=== PATIENT | male | born 1950 | race Caucasian/White ===

== ENCOUNTER 2019-03-18 09:43 | Emergency (ER) | payer MEDICARE, MEDICAID, SELFPAY | END 2019-03-18 11:44 | disposition home or self-care (01) | PROVIDERS: Emergency Provider Nurse Practitioner Family; Family Provider Family Medicine; Visit Provider Nurse Practitioner Family | DX: M54.12 Radiculopathy, cervical region (principal); Z88.2 Allergy status to sulfonamides; F17.210 Nicotine dependence, cigarettes, uncomplicated; I10 Essential (primary) hypertension; J44.9 Chronic obstructive pulmonary disease, unspecified | CPT/HCPCS: 72125; 96372; 99284; J1100; J1885 ==

== ENCOUNTER → 2019-07-26 08:13 | Outpatient (BNVA) | payer MEDICARE, MEDICAID, SELFPAY | PROVIDERS: Family Provider Family Medicine; PCP Family Medicine; Visit Provider Nurse Practitioner | DX: F33.0 Major depressive disorder, recurrent, mild (principal); F43.12 Post-traumatic stress disorder, chronic | CPT/HCPCS: 99213 ==

== ENCOUNTER → 2019-08-29 15:21 | Outpatient (BNVA) | payer MEDICARE, MEDICAID, SELFPAY | PROVIDERS: Family Provider Family Medicine; PCP Family Medicine; Visit Provider Nurse Practitioner Family | DX: M25.511 Pain in right shoulder (principal) | CPT/HCPCS: 73030 ==

== ENCOUNTER → 2020-01-18 07:38 | Outpatient (BNVA) | payer MEDICARE, MEDICAID, SELFPAY | PROVIDERS: Family Provider Family Medicine; PCP Family Medicine; Visit Provider Nurse Practitioner | DX: F33.0 Major depressive disorder, recurrent, mild (principal) | CPT/HCPCS: 99213 ==

== ENCOUNTER → 2020-02-26 14:03 | Outpatient (BNVA) | payer MEDICARE, MEDICAID, SELFPAY | PROVIDERS: Family Provider Family Medicine; PCP Family Medicine; Visit Provider Family Medicine | DX: W57.XXXA Bitten or stung by nonvenomous insect and other nonvenomous arthropods, initial encounter (principal); J44.1 Chronic obstructive pulmonary disease with (acute) exacerbation; I10 Essential (primary) hypertension; F33.0 Major depressive disorder, recurrent, mild; J44.9 Chronic obstructive pulmonary disease, unspecified; M19.011 Primary osteoarthritis, right shoulder; M19.012 Primary osteoarthritis, left shoulder | CPT/HCPCS: 80048; 85025 ==

== ENCOUNTER → 2020-06-17 12:00 | Outpatient (BNVA) | payer MEDICARE, MEDICAID, SELFPAY | PROVIDERS: Family Provider Family Medicine; PCP Family Medicine; Visit Provider Nurse Practitioner | DX: F33.0 Major depressive disorder, recurrent, mild (principal) | CPT/HCPCS: 99214 ==

== ENCOUNTER → 2020-10-15 07:11 | Outpatient (BNVA) | payer MEDICARE, MEDICAID, SELFPAY | PROVIDERS: Family Provider Family Medicine; PCP Family Medicine; Visit Provider Nurse Practitioner | DX: F33.0 Major depressive disorder, recurrent, mild (principal) | CPT/HCPCS: 99214 ==

== ENCOUNTER → 2021-01-20 08:23 | Outpatient (BNVA) | payer MEDICARE, MEDICAID, SELFPAY | PROVIDERS: Family Provider Family Medicine; PCP Family Medicine; Visit Provider Nurse Practitioner | DX: F33.0 Major depressive disorder, recurrent, mild (principal) | CPT/HCPCS: 99214 ==

== ENCOUNTER → 2021-04-22 07:02 | Outpatient (BNVA) | payer MEDICARE, MEDICAID, SELFPAY | PROVIDERS: Family Provider Family Medicine; PCP Family Medicine; Visit Provider Nurse Practitioner | DX: F33.0 Major depressive disorder, recurrent, mild (principal) | CPT/HCPCS: 99214 ==

== ENCOUNTER → 2021-07-14 07:39 | Outpatient (BNVA) | payer MEDICARE, MEDICAID, SELFPAY | PROVIDERS: Family Provider Family Medicine; PCP Family Medicine; Visit Provider Nurse Practitioner | DX: F33.0 Major depressive disorder, recurrent, mild (principal) | CPT/HCPCS: 99214 ==

== ENCOUNTER → 2021-11-04 09:54 | Outpatient (BNVA) | payer MEDICARE, MEDICAID, SELFPAY | PROVIDERS: Family Provider Family Medicine; PCP Family Medicine; Visit Provider Family Medicine | DX: I10 Essential (primary) hypertension (principal); M19.011 Primary osteoarthritis, right shoulder; M19.012 Primary osteoarthritis, left shoulder; Z00.00 Encounter for general adult medical examination without abnormal findings; F33.0 Major depressive disorder, recurrent, mild; J41.0 Simple chronic bronchitis | CPT/HCPCS: 80053; 85025 ==

== ENCOUNTER 2022-08-17 11:30 | Outpatient (CLI) | payer MEDICARE, MEDICAID, SELFPAY ==
--- NOTE | 2022-08-17 11:40 | XR_ITS ---
WS: [id number] Exam: XR knee RT 3V* [id number] Date/Time of Exam: 08/17/2022 12:09 PM Reason For Exam: continued diffuse knee pain No acute fracture or dislocation. There is chondrocalcinosis of the menisci. No joint effusion is see n. Posterior vascular calcifications. Mild degenerative change of the medial joint compartment. XR/XR knee RT 3V* [id number] IMPRESSION: 1. Mild DJD and chondrocalcinosis. 2. No fracture or joint effusion.
== END 2022-08-17 11:31 | disposition home or self-care (01) ==
LOC: RAD 11:35
PROVIDERS: PCP Family Medicine; Visit Provider Family Medicine
DX: M17.11 Unilateral primary osteoarthritis, right knee (principal); M11.261 Other chondrocalcinosis, right knee; S83.421A Sprain of lateral collateral ligament of right knee, initial encounter; X58.XXXA Exposure to other specified factors, initial encounter
CPT/HCPCS: 73562

== ENCOUNTER 2022-10-26 10:34 | Emergency (ER) | payer MEDICARE, MEDICAID, SELFPAY ==
[2022-10-26 10:39] VITALS: BP 74/58; PULSE 85; RESP 16; TEMP 36.7; O2SAT 98; BMI 26.6
--- NOTE | 2022-10-26 10:51 | ED_ITS ---
HPI - Fall General: Chief Complaint: Fall Stated Complaint: fall, left shoulder pain Time Seen by Provider: 10/26/22 10:38 Source: patient Mode of arrival: ambulatory Limitations: no limitations History of Present Illness: Patient is a 72-year-old male with history of COPD, hypertension, and bilateral shoulder osteoarthritis who presents to the emergency department complaining of left shoulder pain status post fall onset 1 hour prior to arrival. Patient states he was walking his dog, when the dog began to andre an animal in the [place]. The patient says he was not paying attention to the dog and was subsequently yanked to the ground, where he fell onto the left shoulder. He thinks maybe he struck his head there was no LOC. He does not complain of a headache. No visual changes. Patient is not on anticoagulation. Patient drove himself to the emergency department and currently is asymptomatic apart from his left shoulder discomfort. He denies any chest pain, palpitations, shortness of b reath, headache, dizziness, weakness, confusion, or any other symptoms. MD complaint: fall Onset (ago): hour(s) Fall from: standing Fall witnessed: no Place fall occurred: home Loss of consciousness: None Prolonged down time: no Symptoms prior to fall: none Context: tripped/slipped and other (pulled to ground) Location of injury - extremities: Left: shoulder Severity: moderate Quality: sharp and stabbing Associated symptoms-after fall: Reports no associated symptoms; Denies abdominal pain, chest pain, confusion, difficulty walking, headache(s), lightheadedness or neck pain Review of Systems Const: Reports: other (Reports fall); Denies: fever(s) or chills Eyes: Denies: change in vision or blurry vision Card: Denies: chest pain, palpitations, irregular heart rhythm, lightheadedness, syncope or dyspnea on exertion Resp: Denies: dyspnea, productive cough or pain on inspiration GI: Denies: abdominal pain, nausea, vomiting, heartburn or diarrhea : Denies: difficulty urinating or dysuria Musc: Reports: joint pain (Left shoulder) and limited range of motion (L shoulder); Denies: neck pain, back pain, extremity pain, extremity swelling or joint swelling Skin/Breast: Denies: rash Neuro: Denies: headache(s), numbness in extremities, weakness in extremities, sensory changes, lack of coordination, difficulty walking, frequent falls, dizziness, confusion or behavioral changes PFSH ED PFSH: Medical History Chronic obstructive pulmonary disease Essential hypertension Major depressive disorder, recurrent, mild Osteoarthritis of shoulders, bilateral Social History Smoking and tobacco status: current every day smoker pipe Alcohol intake: never Substance/Drug Use: never Physical Exam Const: COMMON NORMALS: no acute distress, average body habitus, patient oriented x3, no limitations, alert and well nourished GENERAL APPEARANCE: cooperative ORIENTATION/CONSCIOUSNESS: Yes awake, Yes oriented to person, Yes oriented to place and Yes oriented to time HENMT: COMMON NORMALS: normocephalic, atraumatic, external ears normal and Normal external nose present HEAD & SCALP: normal to inspection, normocephalic and atraumatic; no abrasion, no contusion, no hematoma, no laceration and no scalp tenderness FACE & SINUS: normal facial exam NOSE: Normal external nose present EXTERNAL EAR: Yes external ears normal Eye: COMMON NORMALS: Equal, round and reactive pupils present, EOMs intact bilaterally and conjunctivae normal GENERAL EYE: appearance normal, both eyes and all related structures CONJUNCTIVA: Yes conjunctivae normal PUPIL: Yes Equal, round and reactive pupils present Neck/C-Spine: COMMON NORMALS: full ROM, no lymphadenopathy, supple, no menin geal signs and no JVD GENERAL: Yes normal visual inspection Chest: COMMONS NORMALS: normal inspection of the chest and normal palpation of entire chest wall CHEST: No abnormal inspection of the chest, Yes Symmetrical chest wall rise, No crepitus and No localized rib tenderness with anteropos terior compression Resp: COMMON NORMALS: normal respiratory effort and clear to auscultation bilaterally AUSCULTATION: clear to auscultation bilaterally, no crackles, no rales, no rhonchi and wheezes scattered wheezes Cardio: COMMON NORMALS: no JVD, regular rate, regular rhythm, No gallops present (Cardio), No clicks present (Cardio), No murmurs present (Cardio) and No rub (Cardio) RATE: regular rate RHYTHM: regular rhythm GI: COMMON NORMALS: Normal to inspection, nondistended, normoactive bowel sounds present, Soft to palpation, non-tender, No hepatosplenomegaly present and no masses PALPATION: Yes Soft to palpation and Yes No hepatosplenomegaly present Back/Pelvis: COMMON NORMALS: thoracic and lumbar spine normal to inspection, no thoracic nor lumbar tenderness and thoraco-lumbar ROM normal Extremity: COMMON NORMALS: normal to inspection, capillary refill normal, no joint enlargement and no clubbing, cyanosis or edema GENERAL: Yes normal exam except as noted LEFT UPPER EXTREMITY: Yes shoulder joint Left shoulder joint: Yes inspection (No ecchymosis, erythema, or other signs of trauma. No Deformity.), Yes palpation (Diffuse tenderness to palpation.), Yes ROM (Pain with passive and active range of motion.) and Yes neurovascular exam (Neurovascularly intact.) Neuro: [place] COMA SCALE: document GCS findings [place] coma scale eye opening: Spontaneous [place] coma scale verbal response: Orientated [place] coma scale motor response: Obey commands [place] coma scale total score: 15 COMMON NORMALS: patient oriented x3, moves all extremities, no focal motor deficits, no sensory deficits noted and gait normal SENSORIUM/ORIENTATION: Yes alert, Yes oriented to person, Yes oriented to place and Yes oriented to time MENINGEAL SIGNS: Yes no meningeal signs SPEECH: speech normal Skin: COMMON NORMALS: no rashes or lesions noted GENERAL SKIN EXAM: no rashes or lesions noted TRAUMA: no lacerations or abrasions Course Vital Signs: Vital signs: Vital Signs Temperature 98.0 F 10/26/22 10:39 Pulse Rate 85 10/26/22 10:39 Respiratory Rate 16 10/26/22 10:39 Blood Pressure 158/100 10/26/22 11:16 Pulse Oximetry 98 10/26/22 10:39 Oxygen Delivery Me thod Room Air 10/26/22 10:39 MDM - Fall Medical Decision Making This patient is a 72-year-old male who presented with acute onset left shoulder pain status post mechanical fall. XR showed chronic degenerative osteoarthritic changes with no acute pathology noted. He reported a minor head injury but denied any LOC. Not anticoagulated. No headache, abrasion, or external signs of trauma. No need for emergent CT imaging at this time. Return to ED precautions given. Patient will discharge home with conservative therapies-NSAIDS/Tylenol, ice/heat, and gentle range of motion exercises as tolerated. He will follow-up with his primary care physician, Dr. Bergman, in 2 weeks if symptoms do not seem to be improving. Lab Data Radiology Impressions Shoulder X-Ray 10/26/22 11:06 IMPRESSION: There are chronic degenerative changes of the shoulder demonstrated with maintained osseous alignment overall.No interval fracture or dislocation is appreciated. Discharge Plan Discharge Patient Disposition: Home Clinical Impression: Acute pain of left shoulder due to trauma Condition: Stable Prescriptions: No Action albuterol sulfate 90 mcg/actuation HFA aerosol inhaler See Rx Instructions .ROUTE .COMPLEX Qty: 8.5 3RF Dose Instruction: INHALE 2 PUFFS BY MOUTH EVERY 6 HOURS NEEDED FOR SHORTNESS OF BREATH OR WHEEZING Rx Instructions: INHALE 2 PUFFS BY MOUTH EVERY 6 HOURS NEEDED FOR SHORTNESS OF BREATH OR WHEEZING losartan 50 mg tablet 50 mg PO DAILY Qty: 90 3RF potassium chloride 20 mEq tablet extended release 10 meq PO BID 90 Days Qty: 90 1RF amlodipine 10 mg tablet 10 mg PO DAILY 90 Days Qty: 90 1RF escitalopram oxalate [Lexapro] 10 mg tablet 10 mg PO DAILY Qty: 30 5RF sulindac 200 mg tablet 200 mg PO BID Qty: 60 5RF Rx Instructions: instead of diclofenac for knee pain Discharge Orders: Discharge ED (Routine); Ordered 10/26/22 Ordered By: Corrine Trujillo Referrals: Zackary Bergman MD [Primary Care Provider] - Activity Restrictions/Additional Instructions: As we discussed, your x-rays today did not show any signs of acute injury. We discussed symptomatic treatment at home with [id number] medication, ice/heat, and gentle passive range of motion exercises. As we discussed please follow-up with Dr. Bergman in 2 weeks if your symptoms or not improving. Coding Level of Care Code ED Policy And Planning Manager for [facility] Cox
--- NOTE | 2022-10-26 11:06 | XRR_ITS ---
PROCEDURE INFORMATION: Exam: XR Left Shoulder Exam date and time: 10/26/2022 11:12 AM Age: 72 years old Clinical indication: Pain and injury or trauma; Fall; Blunt trauma (contusions or hematomas); Shoulder; Left; Additional info: Fall/shoulder pain TECHNIQUE: Imaging protocol: Radiologic exam of the left shoulder. 3image(s) are provided. Views: 2 or more views. COMPARISON: 1. CT cervical spin wo con* [id number] 03/18/2019 10:28 AM. No recent left shoulder radiograph is currently available. 2. CR XR chest 1V [id number] 12/26/2016 9:24 AM FINDINGS: Bones/joints: Osseous alignment is maintained.No interval displaced fracture or dislocation is appreciated.There is slightly decreased bone mineralization overall. There is some mild chronic degeneration of the acromioclavicular junction as well as superolateral aspect of the humeral head. There is subacromial spurring and narrowing demonstrated. There is some plate and screw fixation change of the lower cervical spine. Lungs: No interval lung apical pneumothorax or lobar type consolidation is appreciated. There appear to be some granulomatous type calcifications. Soft tissues: No radiopaque foreign body or subcutaneous emphysema is appreciated. Other findings: No other significant interval changes are appreciated. XR/XR shoulder LT min 2V* [id number] IMPRESSION: There are chronic degenerative changes of the shoulder demonstrated with maintained osseous alignment overall.No interval fracture or dislocation is appreciated.
[2022-10-26 11:16] VITALS: BP 158/100
== END 2022-10-26 11:55 | disposition home or self-care (01) ==
PROVIDERS: Emergency Provider Physician Assistant; PCP Family Medicine
DX: M25.512 Pain in left shoulder (principal); M19.012 Primary osteoarthritis, left shoulder; M19.011 Primary osteoarthritis, right shoulder; I10 Essential (primary) hypertension; J44.9 Chronic obstructive pulmonary disease, unspecified; F17.290 Nicotine dependence, other tobacco product, uncomplicated; W18.30XA Fall on same level, unspecified, initial encounter; Y93.K1 Activity, walking an animal
CPT/HCPCS: 73030; 99283

== ENCOUNTER → 2022-12-29 12:41 | Outpatient (BNVA) | payer MEDICARE, MEDICAID, SELFPAY | PROVIDERS: PCP Family Medicine; Visit Provider Nurse Practitioner | DX: R19.7 Diarrhea, unspecified (principal) | CPT/HCPCS: 87045; 87427; 87449 ==

== ENCOUNTER → 2023-01-04 10:25 | Outpatient (BNVA) | payer MEDICARE, MEDICAID, SELFPAY | PROVIDERS: PCP Family Medicine; Visit Provider Family Medicine | DX: K52.9 Noninfective gastroenteritis and colitis, unspecified (principal); I10 Essential (primary) hypertension | CPT/HCPCS: 80053; 85025 ==

== ENCOUNTER 2023-04-07 10:23 | Emergency (ER) | payer MEDICARE, MEDICAID, SELFPAY ==
[2023-04-07 10:39] VITALS: BP 143/77; PULSE 90; RESP 18; TEMP 36.6; O2SAT 98; BMI 24.3
[2023-04-07 11:01] VITALS: BP 160/89; PULSE 84; RESP 18; O2SAT 100
--- NOTE | 2023-04-07 11:03 | XR_ITS ---
WS: [id number] Exam: XR shoulder LT min 2V* [id number] Date/Time of Exam: 04/07/2023 11:29 AM Reason For Exam: Pain No fracture or dislocation. Degenerative change at the AC joint and the proximal humerus. Normal soft tissues. IMPRESSION: 1. Moderately advanced DJD at the AC joint. Degenerative changes along the greater tuberosity of the humerus. 2. No fracture or other significant finding.
--- NOTE | 2023-04-07 12:38 | W.ED.EXTPRO ---
HPI - Extremity Problem General: Chief complaint: Extremity Injury, Upper Stated complaint: upper back pain Time Seen by Provider: 04/07/23 11:03 History of Present Illness: 72-year-old male presents emerged part with complaints of left shoulder pain he states that he was moving firewood yesterday and he states that today the pain is a 9 out of 10 and worse with movement. He states he has had shoulder pain in the past he denies that this is cardiac in nature. He states that the pain is aching and sharp if he attempts to move his left arm. He denies known trauma. He states that sometimes he gets this pain when he uses his extremities too much. Review of Systems General: Reports: 10 or more systems reviewed and unremarkable except in HPI and below Musc: Reports: extremity pain and joint pain PFSH ED PFSH: Medical History Chronic obstructive pulmonary disease Essential hypertension Major depressive disorder, recurrent, mild Osteoarthritis of shoulders, bilateral Social History Smoking and tobacco/nicotine status: current every day tobacco/nicotine user pipe Alcohol intake: never Substance/Drug Use: never Physical Exam Narrative: EXAM NARRATIVE: Constitutional: the patient appears well nourished and of normal development. Vital signs as documented. No acute distress at present. Alert and oriented-to person, place, time and situation. Head, eyes, ears, nose, mouth, throat: Normocephalic, atraumatic. Pupils-equal, round, reactive to light. No scleral icterus. Normal-appearing external ears. Normal appearing nasal turbinates, no drainage. No obvious oral lesions, posterior oropharynx without erythema or exudates. Neck: Supple, trachea is midline, no lymphadenopathy, no jugular venous distension, thyromegaly, or carotid bruits. Carotid upstrokes are brisk bilaterally. Lungs: clear to auscultation to all lung lopez. Symmetrical rise and fall of chest, no obvious signs of increased work of breathing at present. Cardiac: Regular rate and rhythm, positive S1, S2. No murmurs, rubs or gallops that I can appreciate Abdomen: Soft, non-tender to palpation, normal active bowel sounds to all quadrants. No palpable masses, no organomegaly and abdominal bruits. Extremities: 2+ pulses in the upper extremities that are equal bilaterally, 2+ pulses in the lower extremities that are equal bilaterally. Non-edematous. Moves all extremities well, sensation to all extremities are noted. Reproducible pain to the left humeral head. Skin: Warm, dry, intact. Course Vital Signs: Vital signs: Vital Signs Temperature 97.9 F 04/07/23 10:39 Pulse Rate 84 04/07/23 11:01 Respiratory Rate 15 04/07/23 12:57 Blood Pressure 160/89 04/07/23 11:01 Pulse Oximetry 100 04/07/23 11:01 Oxygen Delivery Me thod Room Air 04/07/23 11:01 MDM - Extremity (Nontraumatic) Medical Decision Making 72-year-old male presents with left shoulder pain after excessive use. I will obtain radiographic examination and provide the patient with pain medication and corticosteroid. Medical Records I reviewed the patient's medical records. All radiology interpretation(s) finalized by discharge Discharge Plan Discharge Patient Disposition: Home Clinical Impression: Localized osteoarthritis of left shoulder Condition: Stable Prescriptions: New hydrocodone-acetaminophen 5-325 mg tablet 1 tab PO Q8H PRN (Reason: pain) Qty: 14 0RF No Action sulindac 200 mg tablet 200 mg PO BID Qty: 60 5RF Rx Instructions: instead of diclofenac for knee pain potassium chloride 20 mEq tablet extended release 10 meq PO BID 90 Days Qty: 90 1RF losartan 50 mg tablet 50 mg PO DAILY Qty: 90 3RF amlodipine 10 mg tablet 10 mg PO QPM Lexapro 10 mg tablet 10 mg PO QPM Discharge Orders: Discharge ED (Routine); Ordered 04/07/23 Ordered By: Leno Mars Referrals: Terence Brooke DO [Physician] - Zackary Bergman MD [Primary Care Provider] - Discharge Diet: Advance as tolerated Discharge Activity: Resume usual activity Patient Instructions: Opioid Safety, Pain Management Activity Restrictions/Additional Instructions: Activity Restrictions/Additional Instructions: Thank you for choosing [facility] for your healthcare needs today. Please realize that you were seen in the Emergency Department and that we are providing you with an emergency medical screening exam and this may not be a complete and all inclusive of all the testing and or medical work-up that you may need to determine your ailment or severity of your illness. It is very important that you follow-up as instructed with your Primary care provider or Specialist for additional evaluation and to discuss your medical treatment plan. You may return to the Emergency Department should you have concerns or if your condition changes or worsens in any way. Coding Level of Care Code ED Information Resources Director for Ashley Cox
[2023-04-07] MEDS: ketorolac 60 mg/2 mL INJ IM (12:43)
[2023-04-07] MEDS: methylPREDNISolone sod succ 125 mg/2 mL INJ 60 MG IM (12:47)
[2023-04-07 12:57] VITALS: RESP 15
== END 2023-04-07 12:57 | disposition home or self-care (01) ==
PROVIDERS: Emergency Provider Internal Medicine; PCP Family Medicine
DX: M19.012 Primary osteoarthritis, left shoulder (principal); I10 Essential (primary) hypertension; Z72.0 Tobacco use
CPT/HCPCS: 73030; 96372; 99284; J1885; J2930

== ENCOUNTER 2023-04-17 12:42 | Emergency (ER) | payer MEDICARE, MEDICAID, SELFPAY ==
[2023-04-17 12:49] VITALS: BP 155/84; PULSE 95; RESP 14; TEMP 36.7; O2SAT 98; BMI 24.1
--- NOTE | 2023-04-17 12:52 | XRR_ITS ---
PROCEDURE INFORMATION: Exam: XR Left Ankle Exam date and time: 04/17/2023 1:14 PM Age: 72 years old Clinical indication: Pain; Ankle; Left TECHNIQUE: Imaging protocol: Radiologic exam of the left ankle. Views: 3 or more views. COMPARISON: No relevant prior studies available. FINDINGS: Bones/joints: No fracture or dislocation. Soft tissues: No acute findings. XR/XR ankle LT min 3V* [id number] IMPRESSION: No acute findings.
--- NOTE | 2023-04-17 12:54 | W.ED.LOWEXIN ---
HPI - Extremity Injury (Lower) General: Chief Complaint: Extremity Injury, Lower Stated Complaint: left ankle pain Time Seen by Provider: 04/17/23 12:53 History of Present Illness: 72-year-old male presents emerged part with complaints of left ankle swelling. He states that it has been hurting for the previous 3 days and he denies any known injury or trauma. He states he does have a very large 50 pound dog that may have laid on it while they were sleeping. He states that has been swollen since then and is very tender to touch. He is able to ambulate on it without difficulty. He does have a healing sore to the left heel of his foot. The area does not appear to be reddened it does feel slightly warmer than the left ankle. He denies numbness or tingling to the extremity. Review of Systems General: Reports: 10 or more systems reviewed and unremarkable except in HPI and below Musc: Reports: extremity pain and extremity swelling [facility] ED PFSH: Medical History Chronic obstructive pulmonary disease Essential hypertension Major depressive disorder, recurrent, mild Osteoarthritis of shoulders, bilateral Social History Smoking and tobacco/nicotine status: current every day tobacco/nicotine user pipe Alcohol intake: never Substance/Drug Use: never Physical Exam Narrative: EXAM NARRATIVE: Constitutional: the patient appears well nourished and of normal development. Vital signs as documented. No acute distress at present. Alert and oriented-to person, place, time and situation. Head, eyes, ears, nose, mouth, throat: Normocephalic, atraumatic. Pupils-equal, round, reactive to light. No scleral icterus. Normal-appearing external ears. Normal appearing nasal turbinates, no drainage. No obvious oral lesions, posterior oropharynx without erythema or exudates. Neck: Supple, trachea is midline, no lymphadenopathy, no jugular venous distension, thyromegaly, or carotid bruits. Carotid upstrokes are brisk bilaterally. Lungs: clear to auscultation to all lung lopez. Symmetrical rise and fall of chest, no obvious signs of increased work of breathing at present. Cardiac: Regular rate and rhythm, positive S1, S2. No murmurs, rubs or gallops that I can appreciate Abdomen: Soft, non-tender to palpation, normal active bowel sounds to all quadrants. No palpable masses, no organomegaly and abdominal bruits. Extremities: 2+ pulses in the upper extremities that are equal bilaterally, 2+ pulses in the lower extremities that are equal bilaterally. Slight edema to the left ankle. There is a small area of redness noted to the lateral malleolus area.. Moves all extremities well, sensation to all extremities are noted. Skin: Warm, dry, intact. Course Vital Signs: Vital signs: Vital Signs Temperature 98.0 F 04/17/23 12:49 Pulse Rate 95 04/17/23 12:49 Respiratory Rate 14 04/17/23 12:49 Blood Pressure 155/84 04/17/23 12:49 Pulse Oximetry 98 04/17/23 12:49 Oxygen Delivery Me thod Room Air 04/17/23 12:49 MDM - Extremity Injury (Lower) Medical Decision Making 72-year-old male presents emerged department complaints of left ankle pain and swelling. Given the slight increase in erythema and swelling I will provide him antibiotics for early cellulitis and also provide him an Mk wrap to the left ankle. Medical Records I reviewed the patient's medical records. Lab Data Radiology Impressions Ankle X-Ray 04/17/23 12:52 IMPRESSION: No acute findings. All radiology interpretation(s) finalized by discharge Discharge Plan Discharge Patient Disposition: Home Clinical Impression: Acute left ankle pain, Cellulitis of left ankle Condition: Stable Prescriptions: New hydrocodone-acetaminophen 5-325 mg tablet 1 tab PO Q8H PRN (Reason: pain) Qty: 14 0RF cephalexin 500 mg capsule 500 mg PO BID 7 Days Qty: 14 0RF No Action sulindac 200 mg tablet 200 mg PO BID Qty: 60 5RF Rx Instructions: instead of diclofenac for knee pain potassium chloride 20 mEq tablet extended release 10 meq PO BID 90 Days Qty: 90 1RF losartan 50 mg tablet 50 mg PO DAILY Qty: 90 3RF amlodipine 10 mg tablet 10 mg PO QPM escitalopram oxalate [Lexapro] 10 mg tablet 10 mg PO QPM hydrocodone-acetaminophen 5-325 mg tablet 1 tab PO Q8H PRN (Reason: pain) Qty: 14 0RF Discharge Orders: Discharge ED (Routine); Ordered 04/17/23 Ordered By: Leno Mars Referrals: Zackary Bergman MD [Primary Care Provider] - Terence Brooke DO [Physician] - Discharge Diet: Low Salt Discharge Activity: Resume usual activity Patient Instructions: Opioid Safety, Pain Management Coding Level of Care Code ED [employer] Professor for [facility] Cox
== END 2023-04-17 14:53 | disposition home or self-care (01) ==
PROVIDERS: Emergency Provider Internal Medicine; PCP Family Medicine
DX: L03.116 Cellulitis of left lower limb (principal); M25.572 Pain in left ankle and joints of left foot; J44.9 Chronic obstructive pulmonary disease, unspecified; I10 Essential (primary) hypertension; F17.290 Nicotine dependence, other tobacco product, uncomplicated
CPT/HCPCS: 73610; 99283

== ENCOUNTER → 2023-04-18 12:12 | Outpatient (BNVA) | payer MEDICARE, MEDICAID, SELFPAY | PROVIDERS: PCP Family Medicine; Visit Provider Family Medicine | DX: I10 Essential (primary) hypertension (principal); L03.116 Cellulitis of left lower limb; M10.9 Gout, unspecified; J41.0 Simple chronic bronchitis; M19.011 Primary osteoarthritis, right shoulder; M19.012 Primary osteoarthritis, left shoulder; Z79.899 Other long term (current) drug therapy | CPT/HCPCS: 80053; 84550; 85025; 85651 ==

== ENCOUNTER → 2023-05-03 12:16 | Outpatient (BNVA) | payer MEDICARE, MEDICAID, SELFPAY | PROVIDERS: PCP Family Medicine; Visit Provider Family Medicine | DX: D72.829 Elevated white blood cell count, unspecified (principal) | CPT/HCPCS: 85025 ==

== ENCOUNTER 2023-11-01 12:11 | Outpatient (CLI) | payer MEDICARE, MEDICAID, SELFPAY ==
--- NOTE | 2023-11-01 12:23 | XR_ITS ---
WS: [id number] Examination: XR chest 2V* [id number] Reason for Exam: continued cough 3 weeks on antibiotic Date: November 01, 2023 Comparison: December 26, 2016 Findings: Heart is not enlarged. The mediastinum is not widened. The alex are not large. There is no pulmonary edema or pleural effusion. There is no dense consolidation Surgical changes are noted over the lower cervical spine. XR/XR chest 2V* [id number] Impression: No acute lung process is seen.
== END 2023-11-01 12:12 | disposition home or self-care (01) ==
LOC: RAD 12:16
PROVIDERS: PCP Family Medicine; Visit Provider Family Medicine
DX: R05.9 Cough, unspecified
CPT/HCPCS: 71046

== ENCOUNTER → 2024-06-12 13:19 | Outpatient (BNVA) | payer MEDICARE, MEDICAID, SELFPAY | PROVIDERS: PCP Family Medicine; Visit Provider Family Medicine | DX: M25.421 Effusion, right elbow (principal); M19.90 Unspecified osteoarthritis, unspecified site | CPT/HCPCS: 73080 ==

== ENCOUNTER → 2024-06-20 08:30 | Outpatient (BNVA) | payer MEDICARE, MEDICAID, SELFPAY | PROVIDERS: PCP Family Medicine; Visit Provider Physician Assistant | DX: M19.121 Post-traumatic osteoarthritis, right elbow (principal); S50.00XA Contusion of unspecified elbow, initial encounter; G56.21 Lesion of ulnar nerve, right upper limb; W19.XXXA Unspecified fall, initial encounter | CPT/HCPCS: 73080; 99203 ==

== ENCOUNTER → 2024-07-26 13:23 | Outpatient (BNVA) | payer MEDICARE, MEDICAID, SELFPAY | PROVIDERS: PCP Family Medicine; Referring Provider Physician Assistant; Visit Provider Specialist | DX: G56.21 Lesion of ulnar nerve, right upper limb (principal); M25.421 Effusion, right elbow; M19.121 Post-traumatic osteoarthritis, right elbow | CPT/HCPCS: 95911 ==

== ENCOUNTER → 2024-08-08 15:28 | Outpatient (BNVA) | payer MEDICARE, MEDICAID, SELFPAY | PROVIDERS: PCP Family Medicine; Visit Provider Physician Assistant | DX: G56.21 Lesion of ulnar nerve, right upper limb (principal); M19.121 Post-traumatic osteoarthritis, right elbow | CPT/HCPCS: 99213 ==

== ENCOUNTER → 2024-08-14 11:20 | Outpatient (BNVA) | payer MEDICARE, MEDICAID, SELFPAY | PROVIDERS: PCP Family Medicine; Visit Provider Family Medicine | DX: I10 Essential (primary) hypertension (principal) | CPT/HCPCS: 80053; 85025 ==

== ENCOUNTER → 2024-09-05 10:09 | Outpatient (BNVA) | payer MEDICARE, MEDICAID, SELFPAY | PROVIDERS: PCP Family Medicine; Visit Provider Family Medicine | DX: I10 Essential (primary) hypertension (principal) | CPT/HCPCS: 80048 ==

== ENCOUNTER → 2024-09-18 13:29 | Outpatient (BNVA) | payer OTHER, MEDICAID, SELFPAY | PROVIDERS: PCP Family Medicine; Visit Provider Orthopaedic Surgery | DX: M54.2 Cervicalgia (principal); M54.9 Dorsalgia, unspecified | CPT/HCPCS: 72050; 99203 ==

== ENCOUNTER → 2024-10-02 14:33 | Outpatient (BNVA) | payer OTHER, MEDICAID, SELFPAY | PROVIDERS: PCP Family Medicine; Visit Provider Orthopaedic Surgery | DX: M54.9 Dorsalgia, unspecified (principal); M54.50 Low back pain, unspecified; G89.29 Other chronic pain | CPT/HCPCS: 72110; 99213 ==

== ENCOUNTER 2024-10-10 13:29 | Outpatient (CLI) | payer OTHER, MEDICAID, SELFPAY ==
--- NOTE | 2024-10-10 13:30 | CT_ITS ---
WS: [id number] CT LUMBAR SPINE, noncontrast. HISTORY: Back Pain TECHNIQUE: Contiguous 2.0 mm axial imaging are performed. Sagittal and coronal reformats are submitted and reviewed. All CT scans at [facility] use at least one of these dose optimization techniques: automated exposure control; mA and/or kV adjustment per patient size (includes targeted exams where dose is matched to clinical indication); or iterative reconstruction. IV contrast: None DLP: 333.44 mGy.cm COMPARISON: Lumbar spine radiographs 10/02/2024 L4 anterolisthesis by 3 mm. Otherwise thoracic vertebral bodies are normally aligned. Mild loss of height involving the superior endplate of L4. Mild levoscoliosis of the lumbar spine. L1-2: Mild annular disc bulging. Shallow LEFT foraminal disc protrusion. No significant stenosis. L2-3: Mild annular disc bulging with osteophytic ridging encroaching upon the ventral thecal sac. Bilateral facet joint arthritis, RIGHT greater than LEFT. Mild central, bilateral subarticular recess and foraminal narrowing. L3-4: Diffuse osteophytic ridging with disc bulging and bilateral facet joint arthropathy. Small RIGHT foraminal disc protrusion. There is a very shallow LEFT foraminal disc protrusion. These protrusions are probably contacting the traversing L4 nerve roots. Mild central, subarticular recess and foraminal stenosis. L4-5: Marked osteophytic ridging, annular disc bulging and severe facet joint arthropathy with ligamentum flavum hypertrophy. Bilateral foraminal disc protrusions, RIGHT greater than LEFT. Disc osteophyte contacts the traversing L5 nerve roots. Moderate to severe central and bilateral subarticular recess stenosis. Mild foraminal stenosis. L5-S1: Diffuse disc bulging with osteophytic ridging and a small central disc protrusion. Moderate facet joint arthropathy. Mild bilateral subarticular recess and foraminal stenosis. Sclerotic bone island in the RIGHT ilium. Near circumferential calcified plaque within the abdominal aorta. Calcification extends into the SMA. CT/CT lumbar spine wo con* [id number] IMPRESSION: 1. Grade 1 anterolisthesis of L4. 2. L4-5: Moderate to severe central and bilateral subarticular recess and mild foraminal stenosis. Bilateral foraminal disc protrusions, RIGHT greater than L EFT. Disc protrusions and osteophytes contact the traversing L5 nerve roots. 3. L5-S1: Mild bilateral subarticular recess and foraminal stenosis. 4. L3-4: Mild central, subarticular recess and foraminal stenosis. Bilateral f oraminal disc protrusions RIGHT greater than LEFT are contacting the traversing L4 nerve roots. 5. L2-3: Mild central, subarticular recess and foraminal stenosis. 6. Multilevel facet joint arthropathy. Most significant facet joint arthropath y at L4-5 and L5-S1.
== END 2024-10-10 13:30 | disposition home or self-care (01) ==
LOC: RAD 13:30
PROVIDERS: PCP Family Medicine; Visit Provider Orthopaedic Surgery
DX: M48.061 Spinal stenosis, lumbar region without neurogenic claudication (principal); M51.26 Other intervertebral disc displacement, lumbar region; M47.816 Spondylosis without myelopathy or radiculopathy, lumbar region; M47.817 Spondylosis without myelopathy or radiculopathy, lumbosacral region
CPT/HCPCS: 72131

== ENCOUNTER 2024-10-11 08:51 | Outpatient (CLI) | payer OTHER, MEDICAID, SELFPAY ==
--- NOTE | 2024-10-11 09:00 | IR_ITS ---
WS: [id number] MYELOGRAM CERVICAL SPINE Fluoroscopic guided cervical myelogram CLINICAL INFORMATION: M54.2 - Cervicalgia TECHNIQUE: The procedure, including risks, benefits, and complications, were discussed with the patient who agreed to proceed. A timeout was performed to confirm correct patient, procedure, and site. Using sterile technique, the patient was prepped and draped in the usual sterile fashion. After administration of local anesthesia using 1% preservative-free lidocaine and using fluoroscopic guidance, a 22-gauge spinal needle was advanced into the subarachnoid space at the L1-L2 level. Subsequently 13 cc of Omnipaque 240 was administered into the thecal sac. The needle was removed and hemostasis was achieved. Subsequently the table was tilted down and contrast flowed freely into the cervical spine. Spot fluoroscopic images were obtained. FLUOROSCOPIC TIME: 4min [id number] # of spot films: [address] myelogram report for additional detail. IR/IR myelogram sp cervical [id number] IMPRESSION: Uncomplicated cervical myelogram. CT to follow.
--- NOTE | 2024-10-11 09:12 | CT_ITS ---
WS: [id number] CT CERVICAL MYELOGRAM TECHNIQUE: CT of the cervical spine coronal and sagittal reformatted images post intrathecal administration of contrast. CLINICAL INFORMATION: neck pain COMPARISON: MRI 2016 DLP: 148.[address] scans at [facility] use at least one of these dose optimization techniques: automated exposure control; mA and/or kV adjustment per patient size (includes targeted exams where dose is matched to clinical indication); or iterative reconstruction. FINDINGS: Straightening of the normal cervical lordosis. Mild cervical curve. Advanced degenerative changes at the C1-2 articulation with pannus formation. Slight anterolisthesis C3 on C4 and C4 on C5 appears progressed compared to previous. Stable fusion at C5-C6. Small disc osteophyte protrusions at C3-C4 C4-C5 and C7- T1. Spondylitic changes appear progressed since 2016. C2-C3: Disc osteophyte complex. Mild facet arthropathy. Spinal canal and foramen are patent. C3-C4: Disc osteophyte complex with endplate ridging. Moderate central canal stenosis appears progressed since 2016. Advanced facet arthropathy. Slight contact of the cervical cord. Moderate LEFT greater than RIGHT bony foraminal narrowing. C4-C5: Central disc osteophyte protrusion with slight indentation on the cervical cord. Moderate central canal stenosis. This appears slightly progressed since 2016 with increased anterolisthesis of C4 on C5. Advanced facet arthropathy. Mild to moderate bilateral bony foraminal narrowing. C5-C6: ACDF with interbody fusion graft. Mild LEFT bony foraminal narrowing. Spinal canal is patent. Mild facet arthropathy. C6-C7: Bony disc space fusion. Spinal canal and foramen are patent. C7-T1: Disc osteophyte complex with endplate ridging. Shallow central disc osteophyte protrusion with mild central canal stenosis. Moderate RIGHT and mild to moderate LEFT bony foraminal narrowing. Uncovertebral joint hypertrophy. Mild facet arthropathy. Mastoid air cells are well aerated. Carotid bulb calcification. Lung apices are well aerated. Cervical curve convex RIGHT. CT/CT cervical spine w con [id number] IMPRESSION: 1. Stable appearing postoperative changes C5-6 ACDF with interbody fusion argenis t. Bony fusion across the C6-7 disc space. 2. Slightly increased anterolisthesis C3 on C4 and C4 on C5. 3. Moderate central canal stenosis C3-4 and C4-5 with disc osteophyte protrusi ons. 4. Mild central canal stenosis C7-T1 with a shallow central disc osteophyte pr otrusion. 5. Moderate bony foraminal narrowing worse at LEFT C3-4 with advanced LEFT fac et arthropathy. Mild to moderate bilateral C4-5 with advanced facet arthropathy . 6. Moderate RIGHT C7-T1 bony foraminal narrowing.
[2024-10-11] MEDS: iohexol 240 mg/mL 50 mL Btl 20 ML INTRATHECA (10:12)
== END 2024-10-11 08:52 | disposition home or self-care (01) ==
LOC: RAD 08:51
PROVIDERS: PCP Family Medicine; Visit Provider Orthopaedic Surgery
DX: M48.02 Spinal stenosis, cervical region (principal); M47.812 Spondylosis without myelopathy or radiculopathy, cervical region; M25.78 Osteophyte, vertebrae
CPT/HCPCS: 62302; 72126; J9999

== ENCOUNTER → 2024-10-16 14:16 | Outpatient (BNVA) | payer OTHER, MEDICAID, SELFPAY | PROVIDERS: PCP Family Medicine; Visit Provider Orthopaedic Surgery | DX: M48.061 Spinal stenosis, lumbar region without neurogenic claudication (principal); M48.02 Spinal stenosis, cervical region; Z09 Encounter for follow-up examination after completed treatment for conditions other than malignant neoplasm | CPT/HCPCS: 99214 ==

== ENCOUNTER 2024-10-29 09:51 | Emergency (ER) | payer OTHER, MEDICAID, SELFPAY ==
[2024-10-29 10:26] VITALS: BP 156/83; PULSE 91; RESP 16; TEMP 36.8; O2SAT 98
--- NOTE | 2024-10-29 10:55 | ED_ITS ---
HPI - Extremity Problem General: Chief complaint: Extremity Problem,Nontraumatic Stated complaint: R arm pain Time Seen by Provider: 10/29/24 09:53 Source: patient Mode of arrival: ambulatory Limitations: no limitations History of Present Illness: Patient is a nice 74-year-old male here for complaints of pain to his right elbow and burning into the right forearm. He states this has been a longstandi ng issue. He states a few months ago he did see orthopedics and had nerve conduction studies performed. Results of these were reviewed in his file-showed an ulnar nerve entrapment at his elbow. He was recommended for surgical release but he declined. He states he felt like he was doing okay until recently when his pain came back with a vengeance . He states he is not able to sleep due to the burning and throbbing nature of his discomfort. MD Complaint: extremity pain and joint pain Onset (ago): day(s) Pain Consistency: constant Location: right and elbow Quality: burning Radiation: none Relieving factors: nothing Exacerbating factors: nothing Associated symptoms: Reports no associated symptoms; Deny chest pain or fever(s) Related Data Previous Rx's ?Medication ?Instructions ?Recorded albuterol sulfate 90 mcg/actuation See Rx Instructions .Route 06/11/24 aerosol inhaler .COMPLEX #8.5 grams amlodipine 10 mg tablet See Rx Instructions .Route 0 06/11/24 .COMPLEX #90 tabs potassium chloride 20 mEq 10 meq (1/2 x 20 mEq) PO BID 90 06/11/24 tablet,extended release days #90 tabs tamsulosin 0.4 mg capsule See Rx Instructions .Route 0 06/11/24 .COMPLEX #90 caps leg bag catheter #1 ea 08/14/24 losartan 50 mg tablet 100 mg (2 x 50 mg) PO DAILY #90 08/14/24 tabs celecoxib 200 mg capsule (Celebrex) 200 mg PO BID .elb ow pain #60 caps 09/28/24 mirtazapine 15 mg tablet (Remeron) 15 mg PO .HS #30 ta bs 10/19/24 hydrocodone 5 mg-acetaminophen 325 1 tab PO Q6H PRN pa in #14 tabs 10/29/24 mg tablet methylprednisolone 4 mg tablets in See Rx Instructions PO .COMPLEX 10/29/24 a dose pack (Medrol (Monico)) #21 ea Allergies Allergy/AdvReac Type Severity Reaction Status Date / Time naproxen Allergy SICK Verified 10/29/24 10:38 Sulfa (Sulfonamide Allergy RASH Verified 10/29/24 10:38 Antibiotics) Review of Systems Const: Denies: fever(s), chills, body aches, fatigue or malaise Card: Denies: chest pain Resp: Denies: dyspnea GI: Denies: abdominal pain Musc: Reports: extremity pain and joint swelling (chronic R elbow); Denies: neck pain, back pain, extremity swelling, joint warmth or joint stiffness Neuro: Denies: headache(s), numbness in extremities, weakness in extremities or sensory changes PFSH ED PFSH: Medical History Psychiatric care Osteoarthritis of shoulders, bilateral Chronic obstructive pulmonary disease Essential hypertension Major depressive disorder, recurrent, mild Social History Smoking and tobacco/nicotine status: former use of tobacco/nicotine Alcohol intake: never Substance/Drug Use: never Physical Exam Const: COMMON NORMALS: no acute distress, average body habitus, no limitations, healthy appearing, alert and well nourished Extremity: COMMON NORMALS: full ROM and capillary refill normal GENERAL: Yes normal exam except as noted RIGHT UPPER EXTREMITY: Yes upper arm and Yes elbow joint Right elbow: Yes ROM (normal) and Yes neurovascular exam (normal) Neuro: COMMON NORMALS: moves all extremities, no focal motor deficits and no sensory deficits noted SENSORIUM/ORIENTATION: Yes alert Course Vital Signs: Vital signs: Vital Signs Temperature 98.2 F 10/29/24 10:26 Pulse Rate 91 10/29/24 10:26 Respiratory Rate 16 10/29/24 10:26 Blood Pressure 156/83 10/29/24 10:26 Pulse Oximetry 98 10/29/24 10:26 Oxygen Delivery Me thod Room Air 10/29/24 10:26 MDM - Extremity (Nontraumatic) Medical Decision Making Patient has known ulnar nerve entrapment at the elbow. Symptoms today are consistent with this. He has appointment already set up for ortho later this month-requesting sooner appointment so CM referral placed to see if they can see him any sooner. Will treat with pain meds/steroids. Medical Records I reviewed the patient's medical records. No radiology studies performed this visit Discharge Plan Discharge Patient Disposition: Home Clinical Impression: Entrapment of right ulnar nerve at elbow Condition: Stable Prescriptions: New hydrocodone-acetaminophen 5-325 mg tablet 1 tab PO Q6H PRN (Reason: pain) Qty: 14 0RF methylprednisolone [Medrol (Monico)] 4 mg tablets,dose pack See Rx Instructions .ROUTE .COMPLEX Qty: 21 0RF Rx Instructions: orally per package directions No Action (DME) leg bag catheter See Rx Instructions .Route .MEDSUPPLY Qty: 1 0RF Rx Instructions: As directed losartan 50 mg tablet 100 mg PO DAILY Qty: 90 3RF mirtazapine [Remeron] 15 mg tablet 15 mg PO .HS Qty: 30 1RF albuterol sulfate 90 mcg/actuation HFA aerosol inhaler See Rx Instructions .ROUTE .COMPLEX Qty: 8.5 3RF Dose Instruction: INHALE 2 PUFFS BY MOUTH EVERY 6 HOURS NEEDED FOR SHORTNESS OF BREATH OR WHEEZING Rx Instructions: INHALE 2 PUFFS BY MOUTH EVERY 6 HOURS NEEDED FOR SHORTNESS OF BREATH OR WHEEZING amlodipine 10 mg tablet See Rx Instructions .ROUTE .COMPLEX Qty: 90 1RF Dose Instruction: TAKE 1 TABLET BY MOUTH DAILY Rx Instructions: TAKE 1 TABLET BY MOUTH DAILY potassium chloride 20 mEq tablet extended release 10 meq PO BID 90 Days Qty: 90 1RF tamsulosin 0.4 mg capsule See Rx Instructions .ROUTE .COMPLEX Qty: 90 1RF Dose Instruction: TAKE 1 CAPSULE BY MOUTH DAILY FOR PROSTATE OR FREQUENT URINATION Rx Instructions: TAKE 1 CAPSULE BY MOUTH DAILY FOR PROSTATE OR FREQUENT URINATION celecoxib [Celebrex] 200 mg capsule 200 mg PO BID Qty: 60 4RF Discharge Orders: Discharge ED (Routine); Ordered 10/29/24 Ordered By: Corrine Trujillo Referrals: Zackary Bergman MD [Primary Care Provider, Family Practice] Patient Instructions: Opioid Safety, Pain Management, Patient Portal & Stanley Instructions Activity Restrictions/Additional Instructions: As we discussed, I will have case management try to get you a sooner appointment with orthopedics to discuss surgical options for your nerve entrapment at your elbow. You may take the steroids to try to help with discomfort as well as the pain medication sparingly. Print Language: Maldivian Coding Level of Care Code ED Legal Advisor for Ashley Cox
--- OUTSIDE RECORDS SUMMARY | 2024-10-31 09:19 | XMS_ITS | Encounter Summary ---
Author Organization [facility] Address [address] [place] [address] Care Team Providers Care Atm Technician Name Role Phone Sj Ed, Physician Primary Care Provider Aurelio lane Encounter Details Date Type Department Care Team (Latest Contact Info) Description 11/18/2004 Outpatient Historical [facility] [address] [place] [address] Miguel Pelayo MD [address] [place] [phone] ARTHROPATHY NOS-UNSPEC (Primary Dx) Social History Tobacco Use Types Packs/Day Years Used Date Smoking Tobacco: Never Assessed Sex and Gender Information Value Date Recorded Sex Assigned at Not on file 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
--- OUTSIDE RECORDS SUMMARY | 2024-10-31 09:19 | XMS_ITS | Encounter Summary ---
Author Organization [facility] Address [address] [place] [address] Care Team Providers Care Technology Specialist Name Role Phone Sj Ed, Physician Primary Care Provider Aurelio lane Encounter Details Date Type Department Care Team (Latest Contact Info) Description 12/11/2003 Outpatient Historical [facility] [address] [facility] [address] [place] [address] Raymond Beatty MD NO ADDRESS ON FILE PAIN IN LIMB (Primary Dx) Social History Tobacco Use Types Packs/Day Years Used Date Smoking Tobacco: Never Assessed Sex and Gender Information Value Date Recorded Sex Assigned at Not on file 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
--- OUTSIDE RECORDS SUMMARY | 2024-10-31 09:19 | XMS_ITS | Encounter Summary ---
Author Organization [facility] Address [address] [place] [address] Care Team Providers Care Broadcasting Equipment Mechanic Name Role Phone Sj Ed, Physician Primary Care Provider Aurelio lane Encounter Details Date Type Department Care Team (Latest Contact Info) Description 05/26/2003 Outpatient Historical [facility] Emergency Department [address] [place] [phone] Kev Mack MD [address] [facility] [address] [place], [place] [id number] Jas Hair MD NO ADDRESS ON FILE CHEST PAIN NEC (Primary Dx) Social History Tobacco Use Types Packs/Day Years Used Date Smoking Tobacco: Never Assessed Sex and Gender Information Value Date Recorded Sex Assigned at Not on file 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
--- OUTSIDE RECORDS SUMMARY | 2024-10-31 09:19 | XMS_ITS | Clinical Summary ---
Author Organization [facility] Address [address] [facility] [address] [place] [address] Care Team Providers Care Assemblies And Installations Inspector Name Role Phone Ed, Physician Primary Care Provider Unavailab le Medications fluticasone-js meterol (ADVAIR DISKUS) 500-50 mcg/Dose Inhalation DsDv Take 1 Puff by inhalation 2 times daily. 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 Gender Identity Not on file Sexual Orientation Not on file Plan of Treatment Health Maintenance Due Date Last Done Comments DTAP/TDAP/TD VACCINES (1 - Tdap) 1968 COLORECTAL SCREENING 1994 Colorectal Cancer Screening 1994 FIT-DNA Q 3 years 1994 FIT/FOBT Q 1 year 1994 Flex Sig/CT Colonography Q 5 years 1994 PNEUMOCOCCAL VACCINE 50+ YEARS (1 of 1 - PCV) 08/15/19 00 ZOSTER VACCINE (1 of 2) 08/15/1999 RSV VACCINE (60+ or ) (1 - 1-dose 75+ series) 2024 INFLUENZA VACCINE (#1) 2024 Insurance MEDICAID [place] Care Teams Assemblies And Installations Inspector Relationship Specialty Start Date End Date Ed, Physician NO ADDRESS ON FILE PCP - General 07/03/03
--- OUTSIDE RECORDS SUMMARY | 2024-10-31 09:19 | XMS_ITS | Encounter Summary ---
Author Organization [employer] [facility] Address [address] [place] [address] Care Team Providers Care Braided Band Assembler Name Role Phone Ed, Physician Primary Care Provider Aurelio lane Encounter Details Date Type Department Care Team (Latest Contact Info) Description 12/18/2003 Outpatient Historical [facility] Pain Management Procedures [address] [place] [phone] Raymond Beatty MD NO ADDRESS ON FILE BRACHIAL NEURITIS NOS (Primary Dx) Social History Tobacco Use Types Packs/Day Years Used Date Smoking Tobacco: Never Assessed Sex and Gender Information Value Date Recorded Sex Assigned at Not on file Legal Sex Male 5:21 AM PROGRAM REP Gender Identity Not on file Sexual Orientation Not on file documented as of this encounter Plan of Treatment Not on file documented as of this encounter Visit Diagnoses Diagnosis Brachial neuritis or radiculitis NOS- Primary Brachial neuritis or radiculitis nos documented in this encounter Care Teams Braided Band Assembler Relationship Specialty Start Date End Date Cm Ed, Physician NO ADDRESS ON FILE PCP - General 07/03/03 documented as of this encounter
--- OUTSIDE RECORDS SUMMARY | 2024-10-31 09:19 | XMS_ITS | Encounter Summary ---
Author Organization [employer] Address [address] 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
--- OUTSIDE RECORDS SUMMARY | 2024-10-31 09:19 | XMS_ITS | Encounter Summary ---
Author Organization [facility] Address [address] [place] [address] Care Team Providers Care Container Shop Welder Name Role Phone Ed, Physician Primary Care Provider Aurelio lane Encounter Details Date Type Department Care Team (Latest Contact Info) Description 12/11/2003 Outpatient Historical [facility] [address] [place] [address] Raymond Beatty MD NO ADDRESS ON FILE Cervical disc displacmnt (Primary Dx) Social History Tobacco Use Types Packs/Day Years Used Date Smoking Tobacco: Never Assessed Sex and Gender Information Value Date Recorded Sex Assigned at Not on file Legal Sex Male 5:21 AM ANALYSIS EVALUATOR Gender Identity Not on file Sexual Orientation Not on file documented as of this encounter Plan of Treatment Not on file documented as of this encounter Visit Diagnoses Diagnosis Cervical disc displacmnt- Primary Displacement of cervical intervertebral disc without myelopathy documented in this encounter Care Teams Container Shop Welder Relationship Specialty Start Date End Date Sj Ed, Physician NO ADDRESS ON FILE PCP - General 07/03/03 documented as of this encounter
--- OUTSIDE RECORDS SUMMARY | 2024-10-31 09:19 | XMS_ITS | Encounter Summary ---
Author Organization [facility] Address [address] [place] [address] Care Team Providers Care Industrial Fabric Cutter Name Role Phone Sj Ed, Physician Primary Care Provider Aurelio lane Encounter Details Date Type Department Care Team (Latest Contact Info) Description 07/18/2003 Outpatient Historical [facility] [address], [address] [place] [address] Felicia Knowles MD [address] [place], [place] [phone] CEREBROVASC DISEASE NOS (Primary Dx); HEADACHE Social History Tobacco Use Types Packs/Day Years Used Date Smoking Tobacco: Never Assessed Sex and Gender Information Value Date Recorded Sex Assigned at Not on file 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
--- OUTSIDE RECORDS SUMMARY | 2024-10-31 09:19 | XMS_ITS | Encounter Summary ---
Author Organization [facility] Address [address] [place] [address] Care Team Providers Care Account Executive Metalworking Name Role Phone Ed, Physician Primary Care Provider Unavailab le Encounter Details Date Type Department Care Team (Late st Contact Info) Description 07/03/2003 Emergency [facility] Emergency Department [address] [place] [id number] Elfego Benitez DO NO ADDRESS ON FILE DIZZINESS AND GIDDINESS (Primary Dx) Social History Tobacco Use Types Packs/Day Years Used Date Smoking Tobacco: Never Assessed Sex and Gender Information Value Date Recorded Sex Assigned at Not on file Legal Sex Male 5:21 AM DENTAL CERAMIST ASSISTANT Gender Identity Not on file Sexual Orientation Not on file documented as of this encounter Plan of Treatment Not on file documented as of this encounter Visit Diagnoses Diagnosis Dizziness and giddiness- Primary documented in this encounter Care Teams Account Executive Metalworking Relationship Specialty Start Date End Date Sj Ed, Physician NO ADDRESS ON FILE PCP - General 07/03/03 documented as of this encounter
--- OUTSIDE RECORDS SUMMARY | 2024-10-31 09:19 | XMS_ITS | Encounter Summary ---
Author Organization [facility] Address [address] [place] [address] Care Team Providers Care Director Instructional Material Name Role Phone Sj Ed, Physician Primary Care Provider Aurelio lane Encounter Details Date Type Department Care Team (Latest Contact Info) Description 07/10/2003 Outpatient Historical [facility] Services [address] [place] [address] Felicia Knowles MD [address] [place], [place] [phone] CERVICALGIA (Primary Dx) Social History Tobacco Use Types Packs/Day Years Used Date Smoking Tobacco: Never Assessed Sex and Gender Information Value Date Recorded Sex Assigned at Not on file 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
--- OUTSIDE RECORDS SUMMARY | 2024-10-31 09:19 | XMS_ITS | Encounter Summary ---
Author Organization [facility] Address [address] [place] [address] Care Team Providers Care Logistics And Planning Manager Name Role Phone Cm Ed, Physician Primary Care Provider Aurelio lane Encounter Details Date Type Department Care Team (Latest Contact Info) Description 04/19/[address] 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
--- OUTSIDE RECORDS SUMMARY | 2024-10-31 09:19 | XMS_ITS | Encounter Summary ---
Author Organization [facility] Address [address] [place] [address] Care Team Providers Care President And Chief Executive Officer Name Role Phone Sj Ed, Physician Primary Care Provider Aurelio lane Encounter Details Date Type Department Care Team (Latest Contact Info) Description 07/10/2003 Outpatient Historical [facility] [address] [facility], [address] [place] [address] Felicia Knowles MD [address] [place], [place] [address] DIZZINESS AND GIDDINESS (Primary Dx); Pain in limb; OTHER MALAISE AND FATIGUE Social History Tobacco Use Types Packs/Day Years Used Date Smoking Tobacco: Never Assessed Sex and Gender Information Value Date Recorded Sex Assigned at Not on file 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
--- OUTSIDE RECORDS SUMMARY | 2024-10-31 09:19 | XMS_ITS | Encounter Summary ---
Author Organization [facility] Address [address] [place] [address] Care Team Providers Care Welder Repair Name Role Phone Sj Ed, Physician Primary Care Provider Unavailab le Encounter Details Date Type Department Care Team (Latest Contact Info) Description 04/19/2005 Outpatient Historical [facility] [address] [place] [address] Robinson Singleton MD NO ADDRESS ON FILE RESPIRATORY ABNORM NEC (Primary Dx) Social History Tobacco Use Types Packs/Day Years Used Date Smoking Tobacco: Never Assessed Sex and Gender Information Value Date Recorded Sex Assigned at Not on file 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
== END 2024-10-29 11:28 | disposition home or self-care (01) ==
PROVIDERS: Emergency Provider Physician Assistant; PCP Family Medicine
DX: G56.21 Lesion of ulnar nerve, right upper limb (principal); I10 Essential (primary) hypertension; Z87.891 Personal history of nicotine dependence
CPT/HCPCS: 99283

== ENCOUNTER → 2024-10-30 08:39 | Outpatient (BNVA) | payer OTHER, MEDICAID, SELFPAY | PROVIDERS: PCP Family Medicine; Visit Provider Student in an Organized Health Care Education/Training Program | DX: G56.21 Lesion of ulnar nerve, right upper limb (principal); G56.01 Carpal tunnel syndrome, right upper limb | CPT/HCPCS: 99214 ==

== ENCOUNTER → 2024-11-07 14:21 | Outpatient (BNVA) | payer OTHER, MEDICAID, SELFPAY | PROVIDERS: PCP Family Medicine; Referring Provider Orthopaedic Surgery; Visit Provider Nurse Practitioner Family | DX: M54.2 Cervicalgia (principal); Z87.891 Personal history of nicotine dependence | CPT/HCPCS: 99214 ==

== ENCOUNTER 2024-11-22 06:22 | Day surgery (SDC) | payer MEDICAID, OTHER, SELFPAY ==
[2024-11-22] VITALS (15 sets, daily range): BP systolic 73–141; BP diastolic 41–102; PULSE 88–144; RESP 16–20; TEMP 36.4–36.5; O2SAT 92–99
[2024-11-22] MEDS: acetaminophen 1,000 MG/100 ML PIGGYBACK 400 MG IV (07:03)
--- NOTE | 2024-11-22 07:06 | ANES.PREANE2 ---
Pre-Anesthetic Assessment Height/Weight: Height 1.63 m Weight 68.039 kg Temp Pulse Resp BP Pulse Ox O2 Del Method 97.7 F 97 18 131/74 96 Room Air 11/22/24 06:45 11/22/24 06:45 11/22/24 06:45 11/22/24 06:45 11/22/24 06:45 11/22/24 06:45 Operation Date: 11/22/24 07:55 Proposed Procedures p Carpal Tunnel Release(Right) - Edmond Elliott, DO s Cubital Tunnel Release(Right) - Edmond Sumit, DO s Ulnar Nerve Transposition(Right) - Edmond Elliott, DO Familial anesthetic complications: None Was Beta Nolan taken within 24 hours: N/A Was Clonidine taken within 24 hours: N/A Last intake: Intake Last Liquid Date 11/21/24 Last Liquid Time 22:00 Last Solid Date 11/21/24 Last Solid Time 18:00 Social No alcohol and No tobacco Exam alert, oriented x 3, clear to auscultation bilaterally and regular rate & rhythm Airway Mallampati: Class III Comments: Comments: full swenson Pulmonary Chronic Obstructive Pulmonary Disease CV/HEM Hypertension Anesthetic Plan ASA status: 4 Anesthesia: General Other: post op block prn Risk of > 500 ml blood loss (7ml/kg in children): No Medications/Allergies Home Medications ?Medication ?Instructions ?Recorded ?Confirmed ?Last Taken ?Type potassium chloride 20 mEq 10 meq (1/2 x 20 mEq) PO BID 90 06/11/24 11/22/24 11/20/24 19:00 Rx tablet,extended release days #90 tabs losartan 50 mg tablet 100 mg (2 x 50 mg) PO DAILY #90 08/14/24 11/22/24 11/21/24 07:00 Rx tabs mirtazapine 15 mg tablet (Remeron) 15 mg PO .HS #30 tabs 10/19/24 11/22/24 11/20/24 20:00 Rx hydrocodone 5 mg-acetaminophen 325 1 tab PO Q6H PRN pain 30 days #60 11/12/24 11/22/24 11/20/24 13:00 Rx mg tablet tabs celecoxib 200 mg capsule (Celebrex) 200 mg PO BID 11/21/24 11/22/24 11/21/24 History albuterol sulfate 90 mcg/actuation 1 inh inhalation Q6H 11/22/24 11/22/24 11/18/24 History aerosol inhaler amlodipine 10 mg tablet 10 mg PO DAILY 11/22/24 11/22/24 11/20/24 19:00 History tamsulosin 0.4 mg capsule 0.4 mg PO DAILY 11/22/24 11/22/24 11/20/24 History Allergies Allergy/AdvReac Type Severity Reaction Status Date / Time naproxen Allergy SICK Verified 11/21/24 09:15 Sulfa (Sulfonamide Allergy RASH Verified 11/21/24 09:15 Antibiotics) [facility] Anesthesia Medical History Psychiatric care Osteoarthritis of shoulders, bilateral Chronic obstructive pulmonary disease Essential hypertension Major depressive disorder, recurrent, mild Social History Smoking and tobacco/nicotine status: former use of tobacco/nicotine Alcohol intake: never Substance/Drug Use: never
[2024-11-22] MEDS: ceFAZolin 2,000 MG in sodium chloride 0.9% (plus) 50 ML 100 MG IV (07:58)
--- NOTE | 2024-11-22 08:51 | W.PM.BPON ---
Date of Procedure: 11/22/24 Surgeon: Edmond Arana DO Addiction Therapist(s): Yoanna Arana PA-C Procedure(s) performed: Right carpal tunnel release Right cubital tunnel release Findings of the procedure(s): Patient underwent procedure as planned without issues or complications taken recovery in stable condition Estimated blood loss: 5 mL Specimen(s) removed: None Post-operative diagnosis: Right carpal tunnel syndrome, right cubital tunnel syndrome
--- NOTE | 2024-11-22 08:52 | PM.OP ---
Operative Report Date of procedure: November 22, 2024 Surgeon: Emdond Arana DO Restaurant Supervisor: Broderick Arana PA-C: PA was necessary for assistance in this case with hand positioning to execute the procedure, retraction and protection of neurovascular structures as well as to assist with wound closure and dressing application. Procedure: Preoperative diagnosis: Right carpal tunnel syndrome Right cubital tunnel syndrome Postop Diagnosis: Same Procedure done: Right carpal tunnel release Right?cubital tunnel tunnel release (ulnar nerve decompression at elbow) Surgeon: Edmond Arana DO Estimated blood loss: 5 mL Tourniquet? 19 minutes IV fluids: 900 mL Complications: None Findings: See operative report narrative Condition: stable Disposition: same day Brief History: Patient's been seen and worked up in the outpatient setting and findings consistent with preoperative diagnosis.? Patient has right carpal tunnel syndrome as well as right?cubital tunnel syndrome which has been worked up in the outpatient setting has physical exam findings consistent with this as well as confirmatory nerve conduction/EMG nerve conduction study consistent with diagnosis cubital tunnel syndrome. Given the his symptoms of the carpal tunnel as well we talked about his options like to have both addressed at the same time.? As result patient through shared decision making agreed to proceed with? right carpal tunnel and right?cubital tunnel release with possible ulnar nerve transposition we talked about treatment options as far as nonoperative and operative intervention.? Understands risk benefits complication alternatives surgical nonsurgical treatment options.? Understanding his risks he agrees to proceed with surgical intervention. Understanding these risks he agrees to proceed with surgery.? Consent obtained in the preoperative holding area Procedure: Patient seen evaluate in the preoperative holding area.? Consent was reviewed and signed with patient.? Correct extremity marked.? Patient seen evaluated by anesthesia department once cleared for surgery was then taken back to the operative suite placed in supine position all bony prominences well-padded patient properly secured to bed.? right upper extremity placed onto armboard.? Nonsterile tourniquet applied right upper arm.? Patient then underwent anesthesia per the anesthesia department.? Patient's right upper extremity was then prepped and draped in standard orthopedic fashion.? Final timeout performed.? Patient received appropriate preoperative antibiotics. Esmarch was used exsanguinate the right upper extremity.? Tourniquet was insufflated to 250 mmHg. I started with the carpal tunnel release first.? I made a standard open carpal tunnel release starting with the distal most extent in the palm at the Wells's cardinal line and the incision line was made in line with the fourth ray and ended just distal to the wrist crease.? Sharp scalpel incision was made through skin and subcutaneous tissue I then utilizing self retainer then began to dissect with dissection scissors split longitudinally the palmar fascia.? Next I then utilizing my obstetric assistant Viv retractors subsequently utilizing scalpel feathered through the palmaris brevis as well as through the transverse carpal ligament distally.? Once I encountered the floor of the transverse carpal ligament and entered into the carpal tunnel I then switched to dissection scissors.? Carefully released the distal extent of the transverse carpal ligament to the palmar fat.? Care was to protect the recurrent branch and not injured this during this part of the case.? Next I then placed a Inglis underneath the transverse carpal ligament proximally to protect the nerve in the carpal tunnel contents.? And then I subsequently under loupe magnification utilize my dissection scissors to release the transverse carpal ligament into the antebrachial fascia under direct visualization with care to keep my scissors with a curved ulnarly away from the palmar cutaneous branch.? The transverse carpal was then completely decompressed proximally and a Inglis was then placed both distally and proximally throughout the carpal tunnel and had complete decompression of the nerve.? The nerve did appear to have hourglass shape as it went through the carpal tunnel.? With significant irritation noted around the nerve.? No masses were noted within the contents of the carpal tunnel.? This completed the carpal tunnel release and then I subsequently irrigated the wound bed and placed a wet Ray-Madhuri into the incision for later closure. Next marked out the landmarks of the right elbow of the medial epicondyle and olecranon and made a curvilinear incision following the course of the ulnar nerve at the medial aspect of the elbow.? Sharp scalpel incision was made through skin and subcutaneous tissue.? Next I switched to Littler dissection scissors and spread in plane of the medial antebrachial cutaneous nerve branching which was protected throughout this part of the dissection.? Then I directly came down over the fascia and identified the 2 heads of the FCU fascia and split this right in the middle and subsequently identified my ulnar nerve distally.? This was then completely released distally under direct visualization and loupe magnification.? Once the nerve was then identified I then subsequently tracked this proximally and released this through Russo's ligament as well as complete decompression of the nerve proximally all the way past the intermuscular septum.? The nerve was completely released and decompressed both proximally and distally.? Ulnar nerve neurolysis performed and completed both proximally and distally with dissection scissors.? I then took the elbow through range of motion and there was no instability or subluxating of the ulnar nerve.? This completed?cubital tunnel release.? ?Next the wound bed was thoroughly irrigated.? Tourniquet was deflated.? Hemostasis was satisfactory at the?cubital tunnel release surgery site. I then inspected the carpal tunnel incision and this was found to have satisfactory hemostasis and all this was maintained through bipolar electrocautery.? At this point time I sequentially closed?cubital tunnel site with 3-0 Vicryl suture in a running horizontal mattress nylon stitch.? ? The carpal tunnel release surgery was then closed in standard interrupted mattress fashion.? Dressing was Xeroform 4 x 4's ABD Curlex soft roll and an Mk wrap has a bulky soft dressing. Patient was then awakened from anesthesia and taken to PACU in stable condition. Disposition: Patient taken to PACU in stable condition recovering well.? Patient will receive appropriate discharge instructions as well as pain medication postoperatively.? We will follow-up with Ortho in the office in 2 weeks.? Patient understands agrees with current plan.? All questions answered.? He understands if any questions or concerns and contact the office for follow-up appointment..
[2024-11-22] MEDS: lidocaine-epi 1% 20 mL INJ 5 ML INJECTION (08:53)
[2024-11-22] MEDS: ROPivacaine 0.5% SDV 30 mL 25 MG INJECTION (08:54)
[2024-11-22] MEDS: fentaNYL 50 mcg/mL INJ 2mL IVP ×2 (09:10→09:27)
[2024-11-22] MEDS: ondansetron 2 mg/ML SDV 2 mL 4 MG IVP (09:25)
--- NOTE | 2024-11-22 09:44 | SUR.PHASEI ---
PT came into pacu thrashing, yelling, trying to get out of the bed. Nurses came to bedside to help hold the pt in the bed, along with security and Corinne RAILROAD SIGNAL AND SWITCH OPERATOR. The pt was given versed by Corinne and 50mcg of fentanyl by myself. The pt IV had infiltrated. A new IV was started by Pastor. Pt was given 50mcg of fentanyl and 4mg of zofran. Pt continued to be monitored by myself in PACU until he was stable enough to go to phase 2.
--- NOTE | 2024-11-22 09:58 | PM.PACU ---
PACU note Narrative: Patient is a 74-year-old male that just underwent carpal tunnel and cubital tunnel release right arm. Patient transferred to PACU in stable condition. Pain is well controlled. Dressing on hand is dry and in place. Patient's fingers are warm and well-perfused. Patient can wiggle fingers. normal cap refill under 2 seconds. Patient has normal elbow range of motion. Sensation to fingers intact. Exam: awake Disposition: discharged
--- NOTE | 2024-11-22 11:30 | ANE.PACU2 ---
Inpatient post-anesthesia follow up: Airway intact: Yes Vital signs: Temperature 97.7 F Pulse Rate 94 Respiratory Rate 20 Blood Pressure 120/61 Pulse Oximetry 97 Oxygen Delivery Me thod Room Air Oxygen Flow Rate 10 Fraction of Inspir ed Oxygen Hydration adequate: Yes Nausea and vomiting: No Pain level: 1 Mental status: Baseline
== END 2024-11-22 11:30 | disposition home or self-care (01) ==
PROVIDERS: PCP Family Medicine; Visit Provider Student in an Organized Health Care Education/Training Program
PROC: (CPT 64721; principal; 2024-11-22 07:45)
PROC: (CPT 64718; 2024-11-22 07:45)
DX: G56.01 Carpal tunnel syndrome, right upper limb (principal); G56.21 Lesion of ulnar nerve, right upper limb; J44.9 Chronic obstructive pulmonary disease, unspecified; I10 Essential (primary) hypertension; Z79.891 Long term (current) use of opiate analgesic; F33.9 Major depressive disorder, recurrent, unspecified; Z87.891 Personal history of nicotine dependence
CPT/HCPCS: 64718; 64721; J0131; J0690; J1100; J2250; J2405; J2704; J2795; J3010; J7030; J9999

== ENCOUNTER → 2024-12-05 09:15 | Outpatient (BNVA) | payer OTHER, MEDICAID, SELFPAY | PROVIDERS: PCP Family Medicine; Visit Provider Nurse Practitioner Family | DX: M54.9 Dorsalgia, unspecified (principal); M54.2 Cervicalgia; Z87.891 Personal history of nicotine dependence | CPT/HCPCS: 99214 ==

== ENCOUNTER → 2024-12-07 07:46 | Outpatient (BNVA) | payer OTHER, MEDICAID, SELFPAY | PROVIDERS: PCP Family Medicine; Visit Provider Physician Assistant | DX: Z98.890 Other specified postprocedural states (principal) | CPT/HCPCS: 99024 ==

== ENCOUNTER → 2024-12-11 15:03 | Outpatient (BNVA) | payer OTHER, MEDICAID, SELFPAY | PROVIDERS: PCP Family Medicine; Visit Provider Orthopaedic Surgery | DX: M51.16 Intervertebral disc disorders with radiculopathy, lumbar region (principal); M48.061 Spinal stenosis, lumbar region without neurogenic claudication; M79.604 Pain in right leg | CPT/HCPCS: 72110; 99213 ==

== ENCOUNTER 2024-12-31 11:00 | Outpatient (CLI) | payer OTHER, MEDICAID, SELFPAY ==
--- NOTE | 2024-12-31 11:00 | MR_ITS ---
WS: [id number] MRI LUMBAR SPINE NONCONTRAST TECHNIQUE: Sagittal T1, T2 and STIR imaging. Axial T1 and T2 imaging. CLINICAL INFORMATION: lumbar pain COMPARISON: CT 10/10/2024 and MRI 2008 FINDINGS: Mild lumbar curve. No acute compression. Grade 1 anterolisthesis L4 on L5. L1-L2: Mild annular bulging. Mild facet arthropathy. Mild LEFT foraminal narrowing with a small foraminal protrusion. Mild facet arthropathy. L2-L3: Mild annular bulging with mild central canal stenosis. Narrowing of the subarticular recess bilaterally. Moderate facet arthropathy. Mild RIGHT foraminal narrowing. L3-L4: RIGHT subarticular protrusion impinges the traversing L4 nerve root in the subarticular recess. Mild central canal stenosis. Mild RIGHT foraminal narrowing. Moderate facet arthropathy. L4-L5: Severe central canal stenosis due to disc bulging with grade 1 anterolisthesis in combination with facet arthropathy and ligamentum flavum hypertrophy. Marked impingement on the subarticular recess. Moderate foraminal narrowing. L5-S1: Shallow central protrusion impinges the traversing S1 nerve roots bilaterally. Moderate facet arthropathy. Mild LEFT foraminal narrowing. Visualized pelvic bony structures: Normal. Paravertebral soft tissues: Normal. Bilateral renal cysts. MR/MR lumbar spine wo con* [id number] IMPRESSION: 1. Severe central canal stenosis L4-5 due to grade 1 anterolisthesis in combin ation with disc bulging and facet arthropathy ligamentum flavum hypertrophy. Im pingement of the subarticular recess bilaterally. 2. Mild RIGHT L4-5 foraminal narrowing. 3. RIGHT subarticular protrusion L3-4 impinges the traversing RIGHT L4 nerve r oot in the subarticular recess. Mild central canal stenosis. Mild RIGHT foramin al narrowing with a RIGHT foraminal protrusion. 4. Central disc protrusion L5-S1 impinges the traversing S1 nerve roots bilate rally with mild central canal stenosis. Moderate facet arthropathy. Mild LEFT f oraminal narrowing.
== END 2024-12-31 11:01 | disposition home or self-care (01) ==
LOC: RAD 11:01
PROVIDERS: PCP Family Medicine; Visit Provider Orthopaedic Surgery
DX: M48.061 Spinal stenosis, lumbar region without neurogenic claudication (principal); M51.360 Other intervertebral disc degeneration, lumbar region with discogenic back pain only; M51.26 Other intervertebral disc displacement, lumbar region; M48.07 Spinal stenosis, lumbosacral region
CPT/HCPCS: 72148

== ENCOUNTER → 2025-01-03 13:00 | Outpatient (BNVA) | payer OTHER, MEDICAID, SELFPAY | PROVIDERS: PCP Family Medicine; Visit Provider Orthopaedic Surgery | DX: M48.061 Spinal stenosis, lumbar region without neurogenic claudication (principal) | CPT/HCPCS: 99213 ==

== ENCOUNTER → 2025-01-10 07:50 | Outpatient (BNVA) | payer OTHER, MEDICAID, SELFPAY | PROVIDERS: PCP Family Medicine; Visit Provider Physician Assistant | DX: Z98.890 Other specified postprocedural states (principal) | CPT/HCPCS: 99024 ==

== ENCOUNTER → 2025-01-17 14:08 | Outpatient (BNVA) | payer OTHER, MEDICAID, SELFPAY | PROVIDERS: PCP Family Medicine; Visit Provider Orthopaedic Surgery | DX: M51.16 Intervertebral disc disorders with radiculopathy, lumbar region (principal) | CPT/HCPCS: 99213 ==

== ENCOUNTER → 2025-01-30 09:16 | Outpatient (BNVA) | payer MEDICARE, MEDICAID, SELFPAY | PROVIDERS: PCP Family Medicine; Visit Provider Podiatrist Foot & Ankle Surgery | DX: L60.3 Nail dystrophy (principal) | CPT/HCPCS: 99203 ==